=== PATIENT | female | born 1980 | race Caucasian/White ===

== ENCOUNTER → 2020-07-10 | Day surgery (SDC) | payer OTHER ==
[~2020-07-10] MED LIST: COLACE100 MG PO; HYDROCODON-ACE1 EAC4 PO; IBUPROFEN800 MG PO; NAPROXEN 500 MG PO
[2020-07-10 10:32] LABS: HEMOGLOBIN 13.8 gm/dl (12.3-15.3); RED BLOOD COUNT 4.45 M/UL (4.00-5.10); WHITE BLOOD COUNT 7.1 K/UL (4.5-11.0)
== END | disposition home or self-care (01) ==
LOC: OR 07:45
PROVIDERS: Obstetrics & Gynecology
DX: N85.8 Other specified noninflammatory disorders of uterus (principal); N85.2 Hypertrophy of uterus; K21.9 Gastro-esophageal reflux disease without esophagitis; Z88.2 Allergy status to sulfonamides; Z79.899 Other long term (current) drug therapy
CPT/HCPCS: 36415; 81001; 85025; J0690; J1100; J1885; J2250; J2405; J2704; J3010; J7030; J7120